=== PATIENT | male | born 1990 | race Two or more races ===

== ENCOUNTER 2023-08-11 02:02 | Inpatient (IN) | payer MEDICAID, OTHER ==
[~2023-08-11] VITALS: Ht 177.8 cm; Wt 80.1 kg
[2023-08-11] VITALS (9 sets, daily range): BP systolic 118–139; BP diastolic 79–93; PULSE 106–124; RESP 16–72; TEMP 37.1; O2SAT 95–97
[2023-08-11 02:27] LABS: Basophils # (auto) 0.1 10 ^3/uL (0-0.2); Basophils % (auto) 0.7 % (0.0-2.0); Eosinophils # (auto) 0.1 10 ^3/uL (0-0.8); Hematocrit 43.8 % (41.0-53.0); Lymphocytes # (auto) 1.6 10 ^3/uL (0.4-5.4); Monocytes # (auto) 0.9 10 ^3/uL (0-1.3); Neutrophils # (auto) 14.4 10 ^3/uL (1.6-8.6)
[2023-08-11 02:28] LABS: Eosinophils % (auto) 0.4 % (0.0-7.0); Hemoglobin 14.4 g/dL (13.5-17.5); Lymphocytes % (auto) 9.5 % (10.0-50.0); Mean Corpuscular Hemoglobin 26.1 pg (28.0-32.0); Mean Corpuscular Volume 79.1 fL (80.0-100.0); Monocytes % (auto) 5.5 % (0.0-12.0); Neutrophils % (auto) 83.9 % (37.0-80.0); Red Blood Cells 5.54 10^6/uL (4.5-5.90); Red Cell Distribution Width 13.9 % (11.8-14.3); White Blood Cell 17.1 10^3/uL (4.4-10.8)
[2023-08-11 02:40] LABS: Chloride 105 mmol/L (98-107); Potassium 3.7 mmol/L (3.5-5.1); Sodium 137 mmol/L (136-145)
[2023-08-11 02:41] LABS: Anion Gap 7 (5-15); Calcium 9.1 mg/dL (8.5-10.1); Carbon Dioxide 25 mmol/L (20-30)
[2023-08-11 02:46] LABS: BUN/Creatinine Ratio 10.1 (10.0-20.0); Blood Urea Nitrogen 18 mg/dL (9-23); Glucose 165 mg/dL (74-106)
[2023-08-11] MEDS ORDERED: DEXTROSE (50%) 50ML SYRG IV PRN (03:30)
[2023-08-11] MEDS ORDERED: VANCOMYCIN PER PHARMACY 0 MG IV SCH (03:30)
[2023-08-11] MEDS ORDERED: ONDANSETRON HCL 4 MG/2 ML VIAL IV PRN (03:30)
[2023-08-11] MEDS ORDERED: HYDROcodone-ACET 5/325MG TAB PO PRN (03:30)
[2023-08-11] MEDS ORDERED: DOCUSATE SOD 100 MG CAP PO PRN (03:30)
[2023-08-11] MEDS: hydrALAZINE HCL 20 MG/ML VL IV PRN (03:45)
[2023-08-11] MEDS: levoFLOXacin 250MG 50 ML IV ONE (04:00)
[2023-08-11] MEDS: SODIUM CHLORIDE 0.9% 1,000 ML IV SCH ×2 (04:00→11:40)
[2023-08-11] MEDS: VANCOMYCIN 1GM/200ML 200 ML IV ONE (04:42)
[2023-08-11 04:44] LABS: Albumin 3.3 g/dL (3.2-4.8); Alkaline Phosphatase 100 U/L (46-116); Anion Gap 6 (5-15); Aspartate Aminotransferase 25 U/L (13-40); BUN/Creatinine Ratio 9.9 (10.0-20.0); Bilirubin, Total 0.2 mg/dL (0.2-1.0); Blood Urea Nitrogen 17 mg/dL (9-23); Carbon Dioxide 25 mmol/L (20-30); Chloride 105 mmol/L (98-107); Glucose 164 mg/dL (74-106); Potassium 3.6 mmol/L (3.5-5.1); Sodium 136 mmol/L (136-145); Total Protein 5.7 g/dL (5.7-8.2)
[2023-08-11 04:45] LABS: Alanine Aminotransferase < 9 U/L (7-40)
[2023-08-11] MEDS: ACETAMINOPHEN 325 MG TAB PO PRN (04:49)
[2023-08-11] MEDS ORDERED: MORPHINE SULFATE INJ 2 MG/ml SYRG IV PRN (05:15)
[2023-08-11] MEDS ORDERED: NITROGLYCERIN 0.4 MG SL TAB SL PRN (05:15)
[2023-08-11] MEDS: METOPROLOL TARTRATE 25 MG TAB PO ONE (05:36)
[2023-08-11] MEDS: ACCU-CHEK COMFORT CURVE STRIP VI SCH (06:25)
[2023-08-11] MEDS: InsuLIN REG 1unit/0.01ml Soln (100units/ml) SC SCH ×2 (06:25→22:10)
[2023-08-11] MEDS ORDERED: ATOR20TA50 PO (06:39)
[2023-08-11] MEDS ORDERED: TIRZ10IN SC (06:39)
[2023-08-11] MEDS ORDERED: GABA-1250 PO (06:39)
[2023-08-11] MEDS ORDERED: LISI2.5T47 PO (06:39)
[2023-08-11] MEDS: METOPROLOL TARTRATE 50 MG TAB PO SCH (09:21)
[2023-08-11 12:03] LABS: Urine Bacteria FEW /hpf (None Seen); Urine Blood 1+ /uL (Negative); Urine Clarity Clear (Clear); Urine Color Light-Yellow (Yellow); Urine Hyaline Cast FEW /lpf (0 - 2); Urine Mucus FEW (None Seen); Urine Protein, UAD 3+ (Negative); Urine Specific Gravity 1.021 (1.001-1.035); Urine Urobilinogen Normal (Negative); Urine WBC 7 /hpf (0 - 3)
[2023-08-11 12:31] LABS: Amphetamine Screen, Urine Neg (NEGATIVE); Barbiturate Scree,Urine Neg (NEGATIVE); Benzodiazephine Screen, Urine Neg (NEGATIVE); Cocaine Screen, Urine Neg (NEGATIVE)
[2023-08-11 12:32] LABS: Cannabinoid Screen, Urine Neg (NEGATIVE); Creatinine, Urine 134.34 mg/dL (30.0-125.0); Opiate Scree,Urine Neg (NEGATIVE); Phencyclidine Screen, Urine Neg (NEGATIVE)
[2023-08-11 12:34] LABS: Protein, Urine 886.6 mg/dL (0.0-11.9); Urine Protein/Creatinine Ratio 6.6
[2023-08-11 14:18] LABS: Rapid Influenza A Negative (Negative); Rapid Influenza B Negative (Negative)
[2023-08-11 14:20] LABS: COVID19 ANTIGEN SOFIA FIA NEGATIVE (NEGATIVE)
[2023-08-11] MEDS: VANCOMYCIN 1GM/200ML 200 ML IV SCH (17:05)
[2023-08-12] MEDS: levoFLOXacin 250MG 50 ML IV SCH (04:23)
[2023-08-12 05:00] VITALS: BP 146/104; PULSE 104; RESP 18; TEMP 98.1; O2SAT 98
[2023-08-12 06:07] LABS: Albumin 2.8 g/dL (3.2-4.8); Alkaline Phosphatase 88 U/L (46-116); Anion Gap 7 (5-15); Aspartate Aminotransferase 19 U/L (13-40); BUN/Creatinine Ratio 12.8 (10.0-20.0); Blood Urea Nitrogen 21 mg/dL (9-23); Calcium 8.7 mg/dL (8.5-10.1); Carbon Dioxide 22 mmol/L (20-30); Chloride 108 mmol/L (98-107); Glucose 148 mg/dL (74-106); Potassium 3.9 mmol/L (3.5-5.1); Sodium 137 mmol/L (136-145)
[2023-08-12 06:08] LABS: Bilirubin, Total 0.2 mg/dL (0.2-1.0)
[2023-08-12 06:10] LABS: Alanine Aminotransferase < 9 U/L (7-40)
[2023-08-12 06:25] LABS: Basophils # (auto) 0.1 10 ^3/uL (0-0.2); Eosinophils # (auto) 0.2 10 ^3/uL (0-0.8); Mean Corpuscular Hemoglobin 26.5 pg (28.0-32.0); Mean Corpuscular Hgb Conc. 33.3 g/dL (32.0-36.0); Neutrophils # (auto) 7.6 10 ^3/uL (1.6-8.6); Nucleated Red Blood Cells % 0.1 %
[2023-08-12 06:27] LABS: Eosinophils % (auto) 1.4 % (0.0-7.0); Lymphocytes # (auto) 2.5 10 ^3/uL (0.4-5.4); Lymphocytes % (auto) 22.5 % (10.0-50.0); Mean Corpuscular Volume 79.6 fL (80.0-100.0); Monocytes # (auto) 0.7 10 ^3/uL (0-1.3); Monocytes % (auto) 6.8 % (0.0-12.0); Neutrophils % (auto) 68.3 % (37.0-80.0); Red Blood Cells 4.52 10^6/uL (4.5-5.90); Red Cell Distribution Width 13.9 % (11.8-14.3); White Blood Cell 11.1 10^3/uL (4.4-10.8)
[2023-08-12 08:00] VITALS: BP 141/85; PULSE 109; PULSE 114; RESP 16; TEMP 98.6; O2SAT 97
[2023-08-12] MEDS ORDERED: cloNIDine HCL 0.1 MG TAB PO PRN (12:15)
[2023-08-12 13:00] VITALS: BP 124/87; PULSE 103; RESP 18; TEMP 98.7; O2SAT 97
[2023-08-12 17:00] VITALS: BP 164/103; PULSE 101; RESP 16; TEMP 98.4; O2SAT 98
== END 2023-08-12 17:30 | disposition left against medical advice (07) | DRG 720 ==
LOC: EDBD 02:02 → EDUNIT# 02:02 → ER 02:02 → TELE 05:09 → TELE-WESTW 06:10
PROVIDERS: ADMIT Nurse Practitioner Family; ATTEND Nurse Practitioner Family
DX: A41.9 Sepsis, unspecified organism (principal); I46.9 Cardiac arrest, cause unspecified; J69.0 Pneumonitis due to inhalation of food and vomit; N17.9 Acute kidney failure, unspecified; N13.30 Unspecified hydronephrosis; M62.82 Rhabdomyolysis; J18.9 Pneumonia, unspecified organism; I10 Essential (primary) hypertension; Z53.29 Procedure and treatment not carried out because of patient's decision for other reasons; E11.65 Type 2 diabetes mellitus with hyperglycemia; I16.0 Hypertensive urgency; Z88.0 Allergy status to penicillin; Z79.899 Other long term (current) drug therapy; Z79.4 Long term (current) use of insulin
CPT/HCPCS: 36415; 70450; 71045; 76775; 80048; 80053; 80202; 80307; 81001; 82550; 82570; 82962; 83036; 84156; 84484; 85025; 87040; 87426; 87804; 93306; 96365; 96367; 96375; G0378; J1815